=== PATIENT | female | born 1960 | race Caucasian/White ===

== ENCOUNTER 2017-11-11 15:20 | Outpatient (CLI) | payer OTHER | END 2017-11-11 15:21 | disposition home or self-care (01) | LOC: BICMAMMO 15:20 | PROVIDERS: ATTEND Family Medicine | DX: Z12.31 Encounter for screening mammogram for malignant neoplasm of breast (principal) | CPT/HCPCS: 77063; 77067 ==

== ENCOUNTER 2018-11-12 15:39 | Outpatient (CLI) | payer OTHER ==
--- NOTE | 2018-11-12 16:27 | MMO ---
Bilateral MAMMO Bilat Screen [facility]. CLINICAL HISTORY: Patient is 58 years old and is seen for screening. The patient has no family history of breast cancer. The patient has no personal history of cancer. The patient has a history of right Excisional Biopsy in 1995 - benign. VIEWS: The views performed were: bilateral craniocaudal with tomosynthesis; bilateral mediolateral oblique with tomosynthesis; and bilateral exaggerated craniocaudal. FILMS COMPARED: The present examination has been compared to prior imaging studies performed at [facility] on 10/28/2013, 11/02/2014, 11/07/2015, 11/07/2016 and 11/11/2017, and at [facility] on 11/18/2008, 03/31/2010, 10/30/2011 and 10/27/2012. MAMMOGRAM FINDINGS: The breasts are heterogeneously dense, which could obscure a lesion on mammography. There are stable benign appearing calcifications seen in both breasts. There are no suspicious masses, suspicious calcifications, or new areas of architectural distortion. IMPRESSION: THERE IS NO MAMMOGRAPHIC EVIDENCE OF MALIGNANCY. A ROUTINE FOLLOW-UP MAMMOGRAM IN 1 YEAR IS RECOMMENDED. THE RESULTS OF THIS EXAM WERE SENT TO THE PATIENT. ACR BI-RADS Category 2 - Benign finding MAMMOGRAPHY NOTE: 1. A negative mammogram report should not delay a biopsy if a dominant of clinically suspicious mass is present. 2. Approximately 10% to 15% of breast cancers are not detected by mammography. 3. Adenosis and dense breasts may obscure an underlying neoplasm.
== END 2018-11-12 15:40 | disposition home or self-care (01) ==
LOC: BICMAMMO 15:39
PROVIDERS: ATTEND Family Medicine
DX: Z12.31 Encounter for screening mammogram for malignant neoplasm of breast (principal); Z91.89 Other specified personal risk factors, not elsewhere classified
CPT/HCPCS: 77063; 77067

== ENCOUNTER 2019-08-10 10:31 | Outpatient (CLI) | payer OTHER ==
--- NOTE | 2019-08-10 11:14 | ULT ---
BILATERAL CAROTID DUPLEX ULTRASOUND: HISTORY: Migraine TECHNIQUE: Grayscale, color-flow and spectral Doppler ultrasound imaging of the extracranial carotid artery syst ems was performed bilaterally. FINDINGS: Mild plaque formation. The peak systolic velocity in the right ICA measures 68 cm/s. The peak systolic velocity in the left ICA measures 82 cm/s. Vertebral flow: antegrade, bilaterally. IMPRESSION: No hemodynamically significant stenosis of Both ICAs.
--- NOTE | 2019-08-10 11:49 | CT ---
CT Brain WO Con HISTORY: Headaches. Facial tingling and right arm numbness. COMPARISON: None. FINDINGS: The ventricular and cisternal system is within normal limits. There are no signs of intrace rebral hemorrhage or extra-axial fluid collections. The mastoid air cells and visualized sinuses are clear. IMPRESSION: No acute intracranial abnormalities.
== END 2019-08-10 10:32 | disposition home or self-care (01) ==
LOC: BICCT 10:31
PROVIDERS: ATTEND Family Medicine
DX: G43.409 Hemiplegic migraine, not intractable, without status migrainosus (principal)
CPT/HCPCS: 70450; 93880

== ENCOUNTER 2019-12-09 07:49 | Outpatient (CLI) | payer OTHER ==
--- NOTE | 2019-12-09 09:22 | MMO ---
Bilateral MAMMO Bilat Screen [facility]. CLINICAL HISTORY: Patient is 59 years old and is seen for screening. The patient has no family history of breast cancer. The patient has no personal history of cancer. The patient has a history of right Excisional Biopsy in 1995 - benign. VIEWS: The views performed were: bilateral craniocaudal with tomosynthesis and bilateral mediolateral oblique with tomosynthesis. FILMS COMPARED: The present examination has been compared to prior imaging studies performed at [facility] on 11/07/2016, 11/11/2017 and 11/12/2018. This study has been interpreted with the assistance of computer-aided detection. MAMMOGRAM FINDINGS: The breasts are heterogeneously dense, which could obscure a lesion on mammography. Finding 1: There are stable benign appearing calcifications seen in both breasts. Finding 2: There are stable benign appearing densities seen in both breasts. There are no suspicious masses, suspicious calcifications, or new areas of architectural distortion. IMPRESSION: THERE IS NO MAMMOGRAPHIC EVIDENCE OF MALIGNANCY. A ROUTINE FOLLOW-UP MAMMOGRAM IN 1 YEAR IS RECOMMENDED. THE RESULTS OF THIS EXAM WERE SENT TO THE PATIENT. ACR BI-RADS Category 2 - Benign finding MAMMOGRAPHY NOTE: 1. A negative mammogram report should not delay a biopsy if a dominant of clinically suspicious mass is present. 2. Approximately 10% to 15% of breast cancers are not detected by mammography. 3. Adenosis and dense breasts may obscure an underlying neoplasm. Reported by: MARGARITA MORELAND MD Electonically Signed: [id number]
== END 2019-12-09 07:50 | disposition home or self-care (01) ==
LOC: BICMAMMO 07:49
PROVIDERS: ATTEND Family Medicine
DX: Z12.31 Encounter for screening mammogram for malignant neoplasm of breast (principal); Z91.89 Other specified personal risk factors, not elsewhere classified
CPT/HCPCS: 77063; 77067

== ENCOUNTER 2020-12-13 15:22 | Outpatient (CLI) | payer OTHER | END 2020-12-13 15:23 | disposition home or self-care (01) | LOC: BICMAMMO 15:22 | PROVIDERS: ATTEND Family Medicine | DX: Z12.31 Encounter for screening mammogram for malignant neoplasm of breast (principal); Z91.89 Other specified personal risk factors, not elsewhere classified | CPT/HCPCS: 77063; 77067 ==

== ENCOUNTER 2021-12-14 15:20 | Outpatient (CLI) | payer OTHER | END 2021-12-14 15:21 | disposition home or self-care (01) | LOC: BICMAMMO 15:20 | PROVIDERS: ATTEND Family Medicine | DX: Z12.31 Encounter for screening mammogram for malignant neoplasm of breast (principal); Z91.89 Other specified personal risk factors, not elsewhere classified | CPT/HCPCS: 77063; 77067 ==